=== PATIENT | male | born 2000 | race African-American/Black ===

== ENCOUNTER 2020-10-16 13:04 | Emergency (ER) | payer OTHER, SELFPAY ==
--- NOTE | ~2020-10-16 | XR_ITS ---
XR chest 2V DATE: 10/16/2020 13:38 INDICATION: Chest pain and shortness of breath TECHNIQUE: ML views COMPARISON: None FINDINGS: Normal heart size. No hilar or mediastinal enlargement. No pulmonary infiltrate or consolid ation, pleural effusion or pulmonary vascular congestion or pneumothorax. Thoracolumbar scoliosis. IMPRESSION: No active cardiopulmonary disease Reviewed, dictated and finalized at location A.
[2020-10-16 13:19] VITALS: BP 131/91; PULSE 80; RESP 18; TEMP 36.3; O2SAT 100
--- NOTE | 2020-10-16 13:22 | ECG_ITS ---
Measurements Intervals [place] Rate: 80 P: 70 HI: 151 QRS: 43 QRSD: 89 T: 31 QT: 348 QTc: 402 Interpretive Statements SINUS RHYTHM INCOMPLETE RIGHT BUNDLE BRANCH BLOCK BORDERLINE ECG Electronically Signed On 10-16-2020 19:18:09 CDT by Nile Gordon D.O.
[2020-10-16 13:40] LABS: Basophils Percent Auto 0.2 % (0.2-1.2); Eosinophils Percent Auto 0.5 % (0-4.4); Hemoglobin 14.8 g/dL (14.0-18.0); Immature Granulocyte Absolute 0.01 K/mm3 (0.00-0.031); Immature Granulocyte Percent A 0.2 % (0-0.5); Lymphocytes Absolute Auto 1.32 K/mm3 (0.9-3.2); Lymphocytes Percent Auto 30.1 % (18.3-44.2); Mean Corpuscular HGB Conc 32.2 g/dl (32-36); Mean Corpuscular Hemoglobin 29.2 pg (26-34); Mean Corpuscular Volume 90.9 fl (80-100); Mean Platelet Volume 9.9 fl (7.4-10.4); Monocytes Absolute Auto 0.3 K/mm3 (0.1-0.6); Monocytes Percent Auto 6.2 % (2.6-8.5); Neutrophils Absolute Auto 2.8 K/mm3 (1.3-6.7); Neutrophils Percent Auto 62.8 % (45.5-73.1); Platelet Count Result 206 k/mm3 (150-375); Red Blood Count 5.06 M/mm3 (4.6-6.20); Red Cell Distribution Width 12.1 % (11.5-14.5); White Blood Count 4.4 K/mm3 (4.5-10.0)
[2020-10-16 13:49] LABS: Anion Gap 9 mmol/L (8-16); Blood Urea Nitrogen 11 mg/dL (9-20); Calcium 10.2 mg/dL (8.4-10.2); Carbon Dioxide 27 mmol/L (22-30); Chloride 105 mmol/L (98-107); Estimated CRCL calculation 113 ml/min; Estimated Glomerular Filt Rate > 60; Glucose 104 mg/dL (75-110); Sodium 141 mmol/L (137-145)
[2020-10-16 13:50] LABS: INR 0.9; Prothrombin Time 13.2 Seconds (11.1-14.7)
[2020-10-16 13:52] LABS: Partial Thromboplastin Time 27.9 SECONDS (22.3-36.8)
[2020-10-16 14:00] LABS: Troponin I < 0.012 ng/mL (0.000-0.034)
[2020-10-16 14:18] VITALS: BP 148/82; PULSE 76; RESP 22; O2SAT 99
--- NOTE | 2020-10-16 14:39 | ED.GENADULT ---
HPI - General Adult General Chief complaint: Chest Pain Stated complaint: chest pains Time Seen by Provider: 10/16/20 14:29 Source: patient History of Present Illness HPI narrative: Patient is a 19 y/o male complaining of left sided chest pain starting 3 day ago. He describes his chest pain as sharp with no radiation. He rates his pain as 10/10. There is no alleviating or exacerbating factor. He also has some nausea, vomiting and headache. Related Data Home Medications Medication Instructions Recorded Confirmed No Home Medications 10/16/20 10/16/20 Allergies Allergy/AdvReac Type Severity Reaction Status Date / Time No Known Allergies Allergy Verified 10/16/20 13:21 Review of Systems Constitutional: Constitutional: Denies chills, Denies fever(s), Reports headache(s) and Denies weakness Eyes: Eyes: Denies blurry vision ENT: Reports headache(s) and Denies neck pain Cardiovascular: Cardiovascular: Reports chest pain and Reports dyspnea Respiratory: Respiratory: Denies cough and Reports dyspnea Gastrointestinal: Gastrointestinal: Denies abdominal pain, Denies diarrhea, Reports nausea and Reports vomiting Genitourinary: Genitourinary: Denies hematuria and Denies dysuria Musculoskeletal: Musculoskeletal: Denies back pain and Denies neck pain Neurologic: Reports headache(s) and Denies weakness [facility] Social History Social History Gender identity (if verbalized by the patient): Male Exam Const: General: no acute distress and well developed Orientation/consciousness: oriented to person, oriented to place, oriented to time and patient oriented x3 HENMT: Head: normocephalic Ears: external ears normal General nose exam: Normal external nose present Eyes: General: appearance normal, both eyes and all related structures Conjunctivae: conjunctivae normal Neck: Neck: normal visual inspection and full ROM Chest: Chest palpation & inspection: normal inspection of the chest and no tenderness Resp: Effort & Inspection: normal respiratory effort Auscultation: clear to auscultation bilaterally Cardio: Rate: regular rate Rhythm: regular rhythm GI: GI Palp: No abdominal tenderness and Yes Soft to palpation Skin: General skin exam: normal color and turgor normal Neuro: General: oriented to person, oriented to place, oriented to time and patient oriented x3 Cognition (Neuro): normal cognition Extrem: General: normal to inspection, full ROM and no pedal edema Psych: Appearance: grossly normal Mental Status: mental status grossly normal Affect: normal affect Course Vital Signs Vital signs: Vital Signs Temperature 36.3 C L 10/16/20 13:19 Pulse Rate 80 10/16/20 13:19 Respiratory Rate 18 10/16/20 13:19 Blood Pressure 131/91 H 10/16/20 13:19 Pulse Oximetry 100 10/16/20 13:19 Temperature 36.3 C L 10/16/20 13:19 Pulse Rate 82 10/16/20 17:01 Respiratory Rate 18 10/16/20 17:01 Blood Pressure 114/68 10/16/20 17:01 Pulse Oximetry 100 10/16/20 17:01 Medical Decision Making Vital Signs Vital Signs: Vital Signs Temperature 36.3 C L 10/16/20 13:19 Pulse Rate 80 10/16/20 13:19 Respiratory Rate 18 10/16/20 13:19 Blood Pressure 131/91 H 10/16/20 13:19 Pulse Oximetry 100 10/16/20 13:19 Temperature 36.3 C L 10/16/20 13:19 Pulse Rate 82 10/16/20 17:01 Respiratory Rate 18 10/16/20 17:01 Blood Pressure 114/68 10/16/20 17:01 Pulse Oximetry 100 10/16/20 17:01 Lab Data Result diagrams: 10/16/20 13:27 10/16/20 13:27 Labs: Lab Results 10/16/20 10/16/20 10/16/20 Range/Units 13:27 13:27 13:27 WBC 4.4 L (4.5-10.0) K/mm3 RBC 5.06 (4.6-6.20) M/mm3 Hgb 14.8 (14.0-18.0) g/dL Hct 46.0 (42.0-52.0) % MCV 90.9 (80-100) fl MCH 29.2 (26-34) pg MCHC 32.2 (32-36) g/dl RDW 12.1 (11.5-14.5) % Plt Count 206 (150-375) k/mm3 MP
[2020-10-16 14:50] LABS: D Dimer 0.27 ug/mL (<0.48)
[2020-10-16 15:24] VITALS: BP 137/71; PULSE 67; O2SAT 99
[2020-10-16 16:26] VITALS: BP 137/71; PULSE 67; RESP 22; O2SAT 99
[2020-10-16 16:54] LABS: Troponin I < 0.012 ng/mL (0.000-0.034)
[2020-10-16 17:01] VITALS: BP 114/68; PULSE 82; RESP 18; O2SAT 100
== END 2020-10-16 17:08 | disposition home or self-care (01) ==
PROVIDERS: Family Medicine; Emergency Provider Emergency Medicine
DX: R07.9 Chest pain, unspecified (principal); I45.10 Unspecified right bundle-branch block
CPT/HCPCS: 36415; 71046; 80048; 84484; 85025; 85380; 85610; 85730; 93005; 99284

== ENCOUNTER 2021-01-03 15:15 | Emergency (ER) | payer OTHER, SELFPAY ==
--- NOTE | ~2021-01-03 | XR_ITS ---
XR chest 2V DATE: 01/03/2021 15:55 INDICATION: Shortness of breath and cough. Nausea, vomiting. Smoker. TECHNIQUE: PA and lateral views COMPARISON: 10/16/2020 2 view chest FINDINGS: Normal heart size. No hilar or mediastinal enlargement. No pulmonary infiltrate or consolid ation, pleural effusion or pulmonary vascular congestion or pneumothorax. Mild thoracic and lumbar scoliosis. IMPRESSION: No active cardiopulmonary disease Reviewed, dictated and finalized at location A.
[2021-01-03 15:33] VITALS: BP 137/89; PULSE 71; RESP 14; TEMP 36.9; O2SAT 99
--- NOTE | 2021-01-03 15:36 | ECG_ITS ---
Measurements Intervals [place] Rate: 68 P: 68 TN: 133 QRS: 52 QRSD: 93 T: 33 QT: 394 QTc: 422 Interpretive Statements SINUS RHYTHM INCOMPLETE RIGHT BUNDLE BRANCH BLOCK BASELINE ARTIFACT- V5 BORDERLINE ECG Electronically Signed On 01-03-2021 16:00:03 CDT by Nile Gordon D.O.
[2021-01-03 16:04] LABS: Basophils Percent Auto 0.2 % (0.2-1.2); Eosinophils Absolute Auto 0.1 K/mm3 (0-0.3); Eosinophils Percent Auto 2.4 % (0-4.4); Hematocrit 43.6 % (42.0-52.0); Hemoglobin 14.2 g/dL (14.0-18.0); Immature Granulocyte Absolute 0.01 K/mm3 (0.00-0.031); Immature Granulocyte Percent A 0.2 % (0-0.5); Lymphocytes Absolute Auto 2.57 K/mm3 (0.9-3.2); Lymphocytes Percent Auto 56.2 % (18.3-44.2); Mean Corpuscular HGB Conc 32.6 g/dl (32-36); Mean Corpuscular Hemoglobin 29.2 pg (26-34); Mean Corpuscular Volume 89.7 fl (80-100); Mean Platelet Volume 9.7 fl (7.4-10.4); Monocytes Absolute Auto 0.5 K/mm3 (0.1-0.6); Monocytes Percent Auto 10.1 % (2.6-8.5); Neutrophils Absolute Auto 1.4 K/mm3 (1.3-6.7); Neutrophils Percent Auto 30.9 % (45.5-73.1); Platelet Count Result 199 k/mm3 (150-375); Red Blood Count 4.86 M/mm3 (4.6-6.20); Red Cell Distribution Width 11.6 % (11.5-14.5); White Blood Count 4.6 K/mm3 (4.5-10.0)
[2021-01-03 16:14] LABS: Anion Gap 11 mmol/L (8-16); Blood Urea Nitrogen 14 mg/dL (9-20); Calcium 9.7 mg/dL (8.4-10.2); Carbon Dioxide 26 mmol/L (22-30); Chloride 103 mmol/L (98-107); Estimated CRCL calculation 122 ml/min; Estimated Glomerular Filt Rate > 60; Glucose 86 mg/dL (65-110); Potassium 3.9 mmol/L (3.4-5.0); Sodium 140 mmol/L (137-145)
[2021-01-03 18:10] VITALS: O2SAT 100
--- NOTE | 2021-01-03 18:29 | ED.GENADULT ---
HPI - General Adult General Chief complaint: Upper Respiratory Infection Stated complaint: cp/sob/cough/chills/willams/n/v Time Seen by Provider: 01/03/21 18:13 Source: patient Mode of arrival: ambulatory Limitations: no limitations History of Present Illness HPI narrative: 20-year-old with no major medical problems here with complaints of cold, cough, fever nausea vomiting for past 4 days. Patient states his cough is at times productive yellowish to green in color. He denies any shortness of breath. He states that he is not exposed to Covid but he wants Covid test done and has not received any vaccination. Onset (ago): day(s) (4) Quality: aching Associated symptoms: cough and nausea/vomiting Related Data Allergies Allergy/AdvReac Type Severity Reaction Status Date / Time No Known Allergies Allergy Verified 01/03/21 18:11 Review of Systems Review of Systems: All systems reviewed & are unremarkable except as noted in HPI and below Constitutional: Constitutional: Reports no additional constitutional complaints Eyes: Eyes: Reports no additional eye complaints Cardiovascular: Cardiovascular: Reports no additional cardiovascular complaints Respiratory: Respiratory: Reports as per HPI Gastrointestinal: Gastrointestinal: Reports as per HPI Musculoskeletal: Musculoskeletal: Reports no additional musculoskeletal complaints PMFSH Social History Social History Gender identity (if verbalized by the patient): Male Exam Narrative: Exam Narrative: GENERAL: Well-appearing, well-nourished, and in no acute distress. HEAD: Normocephalic, atraumatic. EYES: PERRLA and EOMI. NECK: Supple. CHEST: Mild wheeze bilaterally. No respiratory distress. HEART: Regular rate and rhythm. No murmur heard. Normal peripheral pulses. ABDOMEN: Soft, nontender, nondistended, normal active bowel sounds. EXTREMITIES: Normal range of motion. No edema. SKIN: Warm, dry, no rash. NEURO: No focal deficits. Alert and oriented x3. PSYCH: Normal mood and affect. Course Course Emergency Course: Inform patient about his lab work and chest x-ray findings. Informed him that he needs to go to urgent care to get rapid Covid test done. Vital Signs Vital signs: Vital Signs Temperature 36.9 C 01/03/21 15:33 Pulse Rate 71 01/03/21 15:33 Respiratory Rate 14 01/03/21 15:33 Blood Pressure 137/89 01/03/21 15:33 Pulse Oximetry 99 01/03/21 15:33 Temperature 36.9 C 01/03/21 15:33 Pulse Rate 71 01/03/21 15:33 Respiratory Rate 14 01/03/21 15:33 Blood Pressure 137/89 01/03/21 15:33 Pulse Oximetry 100 01/03/21 18:10 Medical Decision Making Vital Signs Vital Signs: Vital Signs Temperature 36.9 C 01/03/21 15:33 Pulse Rate 71 01/03/21 15:33 Respiratory Rate 14 01/03/21 15:33 Blood Pressure 137/89 01/03/21 15:33 Pulse Oximetry 99 01/03/21 15:33 Temperature 36.9 C 01/03/21 15:33 Pulse Rate 71 01/03/21 15:33 Respiratory Rate 14 01/03/21 15:33 Blood Pressure 137/89 01/03/21 15:33 Pulse Oximetry 100 01/03/21 18:10 Lab Data Result diagrams: 01/03/21 15:57 01/03/21 15:57 Labs: Lab Results 01/03/21 01/03/21 Range/Units 15:57 15:57 WBC 4.6 (4.5-10.0) K/mm3 RBC 4.86 (4.6-6.20) M/mm3 Hgb 14.2 (14.0-18.0) g/dL Hct 43.6 (42.0-52.0) % MCV 89.7 (80-100) fl MCH 29.2 (26-34) pg MCHC 32.6 (32-36) g/dl RDW 11.6 (11.5-14.5) % Plt Count 199 (150-375) k/mm3 MPV 9.7 (7.4-10.4) fl Immature Gran % (Auto) 0.2 (0-0.5) % Neut % (Auto) 30.9 L (45.5-73.1) % Lymph % (Auto) 56.2 H (18.3-44.2) % [place] % (Auto) 10.1 H (2.6-8.5) % Eos % (Auto) 2.4 (0-4.4) % Baso % (Auto) 0.2 (0.2-1.2) % Lymph # (Auto) 2.57 (0.9-3.2) K/mm3 [place] # (Auto) 0.5 (0.1-0.6) K/mm3 Eos # (Auto) 0.1 (0-0.3) K/mm3 Baso # (Auto) 0.0 (0.0-0.1) K/mm3 Abs Immat Gran (auto) 0.01
== END 2021-01-03 19:22 | disposition home or self-care (01) ==
PROVIDERS: Emergency Medicine; Emergency Provider Family Medicine
DX: B34.9 Viral infection, unspecified (principal); I45.10 Unspecified right bundle-branch block
CPT/HCPCS: 36415; 71046; 80048; 85025; 93005; 99284

== ENCOUNTER 2021-03-07 09:39 | Emergency (ER) | payer OTHER, SELFPAY ==
[2021-03-07 09:54] VITALS: BP 131/65; PULSE 59; RESP 16; TEMP 36.8; O2SAT 99
--- NOTE | 2021-03-07 11:28 | ED.DENTAL ---
HPI - Dental/Oral General Chief complaint: Dental/Oral Stated complaint: DENTAL PAIN Time Seen by Provider: 03/07/21 11:21 Source: patient Mode of arrival: ambulatory Limitations: no limitations History of Present Illness HPI Narrative: Patient presents for evaluation of left lower and right upper dental pain for the last week. He states the pain is constant, 10 out of 10 in severity, described as aching, worse with exposure to warm and cold temperatures. No fever, chills, nausea, vomiting, trismus, problems handling secretions. She has been taking ibuprofen with some improvement in his symptoms thereafter. No additional complaints or concerns. Related Data Allergies Allergy/AdvReac Type Severity Reaction Status Date / Time No Known Allergies Allergy Verified 03/07/21 11:09 Review of Systems Review of Systems: CONSTITUTIONAL: Denies fever, chills, or sweats. EYES: Denies visual changes, redness, or discharge. ENT: Reports left lower and right upper dental pain. Denies rhinorrhea, congestion, sore throat, or otalgia. CARDIOVASCULAR: Denies chest pain, palpitations, or edema. RESPIRATORY: Denies cough or dyspnea. GASTROINTESTINAL: Denies abdominal pain, nausea, vomiting, or diarrhea. GENITOURINARY: Denies dysuria or hematuria. SKIN: Denies rash or itching. MUSCULOSKELETAL: Denies back pain, joint pain, or myalgia. NEUROLOGIC: Denies headache, numbness, dizziness, or weakness. PSYCHIATRIC: Denies anxiety or depression. [facility] Past Medical History Medical History (Updated 03/07/21 @ 11:38 by WILMER Cesar, RICHARD) No pertinent past medical history Surgical History Surgical History No pertinent past surgical history Family History Family History Father Heart disease Social History Social History Additional smoking assessment comments: 2 black and mild's per day Alcohol intake: current Alcohol use details: Socially Substance use: never Gender identity (if verbalized by the patient): Male Sexual Orientation (if Verbalized by the Patient): Straight or Heterosexual Spiritual care concerns: No Exam Narrative: GENERAL: Well-appearing, well-nourished, and in no acute distress. HEAD: Normocephalic, atraumatic. EYES: PERRLA and EOMI. ENT: Tooth #19 is fractured. There is no visible or palpable abscess. Nares clear, no rhinorrhea or epistaxis. Mucous membranes moist. Oropharynx without tonsillar hypertrophy exudate or other lesions. Bilateral TMs pearly ruano nonbulging NECK: Supple. No adenopathy or masses. No carotid bruits or JVD CHEST: Clear to auscultation. No respiratory distress. No wheezes rales or rhonchi HEART: Regular rate and rhythm. No murmur heard. Normal peripheral pulses. ABDOMEN: Soft, nontender, nondistended, normal active bowel sounds. EXTREMITIES: Normal range of motion. No edema. SKIN: Warm, dry, no rash. NEURO: No focal deficits. Alert and oriented x3. PSYCH: Normal mood and affect. Course Course Emergency Course: This is a 20-year-old male who presents with complaints of dental pain. On exam he has a fractured tooth with no visible or palpable abscess. We will discharge him with oral antibiotics with recommended follow-up outpatient with dentist this coming week. Patient agreed with plan of care. Vital Signs Vital signs: Vital Signs Temperature 36.8 C 03/07/21 09:54 Pulse Rate 59 L 03/07/21 09:54 Respiratory Rate 16 03/07/21 09:54 Blood Pressure 131/65 03/07/21 09:54 Pulse Oximetry 99 03/07/21 09:54 Temperature 36.8 C 03/07/21 09:54 Pulse Rate 59 L 03/07/21 09:54 Respiratory Rate 16 03/07/21 09:54 Blood Pressure 131/65 03/07/21 09:54 Pulse Oximetry 99 03/07/21 09:54 MDM - Dental/Oral Differential Diagnosis Differential diagnosis: Likely gingival
[2021-03-07 12:25] VITALS: BP 122/78; PULSE 88; RESP 16; O2SAT 100
== END 2021-03-07 12:30 | disposition home or self-care (01) ==
PROVIDERS: Emergency Provider Nurse Practitioner
DX: S02.5XXA Fracture of tooth (traumatic), initial encounter for closed fracture (principal); X58.XXXA Exposure to other specified factors, initial encounter
CPT/HCPCS: 99283

== ENCOUNTER 2021-09-06 08:54 | Emergency (ER) | payer OTHER, SELFPAY ==
[2021-09-06 08:57] VITALS: BP 145/75; PULSE 56; RESP 18; TEMP 36.5; O2SAT 99
--- NOTE | 2021-09-06 09:24 | ED.NAVMDI ---
HPI - Nausea/Vomiting/Diarrhea General Chief complaint: Nausea/Vomiting/Diarrhea Stated complaint: Vomiting x3 Days Time Seen by Provider: 09/06/21 09:04 Source: patient History of Present Illness HPI Narrative: 20 y/o male presents today with nausea, vomiting and diarrhea for the past 3 days. He denies any fever or chills. He says that symptoms are usually worse earlier in the day and get better in the evenings. He says that he is eating and drinking pretty well and does not feel like he is dehydrated. He does not want to be checked for flu or covid. He is needing a work note for today. He denies any abdominal pain. No cough or chest congestion. Denies any other symptoms. Related Data Allergies Allergy/AdvReac Type Severity Reaction Status Date / Time No Known Allergies Allergy Verified 09/06/21 09:02 Review of Systems Constitutional: Constitutional: Denies chills, Denies fever(s) and Denies weakness Eyes: Eyes: Reports no additional eye complaints ENT: Denies nasal congestion and Denies sore throat Cardiovascular: Cardiovascular: Denies chest pain, Denies rapid heart rate and Denies radiating jaw, neck or arm pain Respiratory: Respiratory: Denies chest congestion, Denies cough, Denies dyspnea and Denies wheezing Gastrointestinal: Gastrointestinal: Reports diarrhea, Reports nausea and Reports vomiting Genitourinary: Genitourinary: Denies oliguria Musculoskeletal: Musculoskeletal: Denies back pain, Denies myalgias and Denies arthralgias Integumentary/Breasts: Skin/Breast: Denies rash Neurologic: Denies dizziness Psychiatric: Psychiatric: Denies anxiety and Denies depression Endocrine: Endocrine: Denies fatigue and Denies polydipsia Hematologic/Lymphatic: Hematologic/Lymphatic: Denies easy bleeding and Denies easy bruising Allergic/Immunologic: Allergic/Immunologic: Reports no additional allergic/immunologic complaints [facility] Past Medical History Medical History No pertinent past medical history Surgical History Surgical History No pertinent past surgical history Family History Family History Father Heart disease Social History Social History Additional smoking assessment comments: 2 black and mild's per day Alcohol intake: current Alcohol use details: Socially Substance use: never Gender identity (if verbalized by the patient): Male Sexual Orientation (if Verbalized by the Patient): Straight or Heterosexual Spiritual care concerns: No Exam Const: General: no acute distress and alert Orientation/consciousness: patient oriented x3 HENMT: Head: normal to inspection Eyes: Conjunctivae: conjunctivae normal Pupils: Equal, round and reactive pupils present Neck: Neck: normal visual inspection Chest: Chest palpation & inspection: normal inspection of the chest Resp: Effort & Inspection: normal respiratory effort Auscultation: clear to auscultation bilaterally Cardio: Rate: regular rate Rhythm: regular rhythm GI: GI Palp: Yes Soft to palpation, No Tenderness to palpation present (GI) and No Guarding due to palpation present (GI) Auscultation: normal bowel sounds : General: Yes no CVA tenderness Skin: General skin exam: normal color Rashes: no rashes Neuro: General: patient oriented x3, moves all extremities, no meningeal signs, no focal motor deficits and CN's II-XI intact bilaterally Extrem: General: normal to inspection Psych: Mental Status: mental status grossly normal Affect: normal affect Attitude: cooperative Course Vital Signs Vital signs: Vital Signs Temperature 36.5 C 09/06/21 08:57 Pulse Rate 56 L 09/06/21 08:57 Respiratory Rate 18 09/06/21 08:57 Blood Pressure 145/75 H 09/06/21 08:57 Pulse Oximetry 99 03
[2021-09-06 09:51] LABS: Basophils Percent Auto 0.5 % (0.2-1.2); Eosinophils Percent Auto 0.7 % (0-4.4); Hematocrit 41.9 % (42.0-52.0); Hemoglobin 13.6 g/dL (14.0-18.0); Immature Granulocyte Absolute 0.01 K/mm3 (0.00-0.031); Immature Granulocyte Percent A 0.2 % (0-0.5); Lymphocytes Absolute Auto 1.54 K/mm3 (0.9-3.2); Lymphocytes Percent Auto 36.1 % (18.3-44.2); Mean Corpuscular HGB Conc 32.5 g/dl (32-36); Mean Corpuscular Hemoglobin 30.2 pg (26-34); Mean Corpuscular Volume 92.9 fl (80-100); Mean Platelet Volume 9.9 fl (7.4-10.4); Monocytes Absolute Auto 0.3 K/mm3 (0.1-0.6); Neutrophils Absolute Auto 2.4 K/mm3 (1.3-6.7); Neutrophils Percent Auto 55.5 % (45.5-73.1); Platelet Count Result 197 k/mm3 (150-375); Red Blood Count 4.51 M/mm3 (4.6-6.20); Red Cell Distribution Width 11.9 % (11.5-14.5); White Blood Count 4.3 K/mm3 (4.5-10.0)
[2021-09-06 10:08] LABS: Alanine Aminotransferase 19 U/L (4-50); Albumin Level 4.4 g/dL (3.5-5.1); Alkaline Phosphatase 59 U/L (38-126); Anion Gap 5 mmol/L (8-16); Aspartate Amino Transferase 27 U/L (17-59); Bilirubin,Total 1.7 mg/dL (0.2-1.3); Blood Urea Nitrogen 11 mg/dL (9-20); Carbon Dioxide 29 mmol/L (22-30); Chloride 104 mmol/L (98-107); Estimated CRCL calculation 133 ml/min; Estimated Glomerular Filt Rate > 60; Glucose 103 mg/dL (65-110); Lipase 95 U/L (23-300); Potassium 4.2 mmol/L (3.4-5.0); Sodium 138 mmol/L (137-145)
== END 2021-09-06 09:56 | disposition home or self-care (01) ==
PROVIDERS: Emergency Medicine; Emergency Provider Nurse Practitioner Family
DX: K52.9 Noninfective gastroenteritis and colitis, unspecified (principal)
CPT/HCPCS: 36415; 80053; 83690; 85025; 99283